=== PATIENT | female | born 1955 | race Asian ===

== ENCOUNTER 2019-05-02 11:34 | Emergency (ER) | payer MEDICAID ==
[~2019-05-02] VITALS: Ht 152.4 cm; Wt 61.4 kg
[2019-05-02] MEDS ORDERED: LOSA50TA64 PO (11:39)
[2019-05-02] MEDS ORDERED: IRON15TA3 PO (11:39)
[2019-05-02] MEDS ORDERED: METF-960 PO (11:39)
[2019-05-02] MEDS ORDERED: ATOR80TA PO (11:39)
[2019-05-02] MEDS ORDERED: CA C1TAB95 PO (11:39)
[2019-05-02] MEDS ORDERED: IBUP-1506 PO (11:39)
[2019-05-02] MEDS ORDERED: CALC-21 PO (12:57)
[2019-05-02] MEDS ORDERED: METF750T46 PO (12:57)
[2019-05-02] MEDS: ACETAMINOPHEN 500 MG TABLET PO ONE (13:11)
[2019-05-02] MEDS: IBUPROFEN 600 MG TABLET PO ONE (13:11)
[2019-05-02 15:10] VITALS: BP 135/76
== END 2019-05-02 15:21 | disposition home or self-care (01) ==
LOC: EMS 11:37
DX: S20.212A Contusion of left front wall of thorax, initial encounter (principal); S00.03XA Contusion of scalp, initial encounter; S00.83XA Contusion of other part of head, initial encounter; E11.9 Type 2 diabetes mellitus without complications; E78.00 Pure hypercholesterolemia, unspecified; I11.9 Hypertensive heart disease without heart failure; Z79.899 Other long term (current) drug therapy; W01.198A Fall on same level from slipping, tripping and stumbling with subsequent striking against other object, initial encounter; Y93.01 Activity, walking, marching and hiking; Y92.89 Other specified places as the place of occurrence of the external cause; Y99.8 Other external cause status
CPT/HCPCS: 70100; 71101